=== PATIENT | female | born 1960 | race Caucasian/White ===

== ENCOUNTER 2017-01-04 05:59 | Inpatient (IN) | payer OTHER ==
[2016-12-23 08:19] VITALS: BP 133/87
[~2017-01-04] VITALS: Ht 157.5 cm; Wt 102.0 kg
[~2017-01-04 05:59] MED LIST: BIOT300T2 PO; FLUO40CA2 PO; OMEP-110 PO; Vitamin B12 PO; iron PO
[2017-01-04] MEDS ORDERED: LACTATED RINGERS 1,000 ML IV SCH (07:07)
[2017-01-04] MEDS ORDERED: BUPIVACAINE/PF-EPI 0.25% 1:200K ONE (07:18)
[2017-01-04] MEDS ORDERED: LIDOCAINE 1%, 2ML SQ PRN (07:30)
[2017-01-04] MEDS ORDERED: SCOPOLAMINE PATCH, 1.5MG PATCH.TD72 TD ONE (07:30)
[2017-01-04] MEDS ORDERED: PNEUMOCOCCAL 23 VACCINE IM-VACC ONE (07:30)
[2017-01-04] MEDS ORDERED: MIDAZOLAM 1 MG/ML, 2ML ONE (07:46)
[2017-01-04] MEDS ORDERED: FENTANYL PF 250 MCG/5ML ONE (07:46)
[2017-01-04 08:22] LABS: HCG UR OBC PASS
[2017-01-04] MEDS ORDERED: GLYCOPYRROLATE 0.2MG/1ML ONE (09:01)
[2017-01-04] MEDS ORDERED: SUCCINYLCHOLINE 20 MG/ML, 10ML ONE (09:01)
[2017-01-04] MEDS ORDERED: CEFAZOLIN 1,000 MG ONE (09:01)
[2017-01-04] MEDS ORDERED: ROCURONIUM 10 MG/ML ONE (09:01)
[2017-01-04] MEDS ORDERED: NEOSTIGMINE 1 MG/ML, 10ML ONE (09:01)
[2017-01-04] MEDS ORDERED: PROPOFOL 10 MG/ML, 20ML ONE (09:01)
[2017-01-04] MEDS ORDERED: DEXAMETHASONE 4 MG/ML, 1ML ONE (09:01)
[2017-01-04] MEDS ORDERED: LORazepam 2 MG/ML, 1ML IV PRN (10:30)
[2017-01-04] MEDS ORDERED: ACETAMINOPHEN 325 MG TABLET PO PRN (10:30)
[2017-01-04] MEDS ORDERED: hydrALAzine 20 MG/ML, 1ML IVPush PRN (10:30)
[2017-01-04] MEDS ORDERED: ENALAPRILAT 1.25 MG/ML, 2ML IV PRN (10:30)
[2017-01-04] MEDS ORDERED: PROMETHAZINE 12.5 MG SUPP PR PRN (10:30)
[2017-01-04] MEDS ORDERED: hydrALAzine 20 MG/ML, 1ML IV PRN (10:30)
[2017-01-04] MEDS ORDERED: DIPHENHYDRAMINE 50 MG/ML, 1ML IV PRN (10:30)
[2017-01-04] MEDS ORDERED: ONDANSETRON 2MG/ML, 2ML IVPush PRN ×2 (10:30)
[2017-01-04] MEDS ORDERED: PHENOL THROAT SPRAY BOTTLE MM PRN (10:30)
[2017-01-04] MEDS ORDERED: LABETALOL 5MG/ML, 20ML IV PRN (10:30)
[2017-01-04] MEDS ORDERED: PROMETHAZINE 25 MG/ML, 1ML IM PRN (10:30)
[2017-01-04] MEDS ORDERED: METOCLOPRAMIDE 5 MG/ML, 2ML IV PRN (10:30)
[2017-01-04] MEDS ORDERED: OXYcodone 5 MG/5 ML ORAL.SOL UDC PO PRN (10:30)
[2017-01-04] MEDS ORDERED: morphine SULFATE 10 MG/ML, 1ML IVPush PRN (10:30)
[2017-01-04] MEDS ORDERED: ACETAMINOPHEN 650 MG/20.3 ML UDC ONE (10:58)
[2017-01-04] MEDS ORDERED: FENTANYL PF 100 MCG/2ML ONE (10:58)
[2017-01-04] MEDS ORDERED: OXYcodone 5 MG/5 ML ORAL.SOL UDC ONE (10:59)
[2017-01-04] MEDS: FENTANYL PF 100 MCG/2ML IV PRN ×2 (11:04→11:18)
[2017-01-04] MEDS ORDERED: PROMETHAZINE 25 MG/ML, 1ML ONE (11:36)
[2017-01-04] MEDS ORDERED: HYDROmorphone 2 MG/ML, 1ML ONE (11:36)
[2017-01-04] MEDS: HYDROmorphone 1 MG/ML, 1ML IV PRN ×8 (11:37→21:17)
[2017-01-04] MEDS ORDERED: PROMETHAZINE 25 MG/ML, 1ML IV PRN (12:00)
[2017-01-04] MEDS: PANTOPRAZOLE 40 MG IV IVPush SCH (14:15)
[2017-01-04] MEDS: LACTATED RINGERS 1,000 ML IV SCH ×2 (14:16→21:16)
[2017-01-04 15:17] VITALS: BP 157/98
[2017-01-04 19:50] VITALS: BP 125/75
[2017-01-04 23:30] VITALS: BP 132/74
[2017-01-05] MEDS: HYDROcodone/APAP 7.5-325MG/15ML UDC PO PRN ×4 (00:05→13:32)
[2017-01-05 03:50] VITALS: BP 129/74
[2017-01-05] MEDS: LACTATED RINGERS 1,000 ML IV SCH ×2 (03:51→09:00)
[2017-01-05] MEDS: HYDROmorphone 1 MG/ML, 1ML IV PRN (03:52)
[2017-01-05] MEDS ORDERED: PNEUMOCOCCAL 23 VACCINE IM-VACC ONE (05:00)
[2017-01-05 05:32] LABS: HEMOGLOBIN 13.8 g/dL (11.7-16.4)
[2017-01-05 05:44] LABS: BLOOD UREA NITROGEN 5 mg/dL (7-18)
[2017-01-05 07:00] VITALS: BP 136/79
[2017-01-05] MEDS: PANTOPRAZOLE 40 MG IV IVPush SCH (08:56)
[2017-01-05 12:55] VITALS: BP 140/85
[2017-01-05] MEDS ORDERED: KETOROLAC 30 MG/1 ML IVPush PRN (13:30)
[2017-01-05 15:21] VITALS: BP 117/51
== END 2017-01-05 15:50 | disposition home or self-care (01) | DRG 621 ==
LOC: ORIP 05:59 → 4NOR 12:34 → DCLOUNGE 01-05 15:33
PROVIDERS: ADMIT Thoracic Surgery (Cardiothoracic Vascular Surgery); ATTEND Thoracic Surgery (Cardiothoracic Vascular Surgery)
PROC: 0BQS4ZZ (ICD-10-PCS; 2017-01-04)
PROC: 0BQR4ZZ (ICD-10-PCS; 2017-01-04)
PROC: 0DB64Z3 Excision of Stomach, Percutaneous Endoscopic Approach, Vertical (ICD-10-PCS; principal; 2017-01-04 08:30)
DX: E66.01 Morbid (severe) obesity due to excess calories (principal); K44.9 Diaphragmatic hernia without obstruction or gangrene; K21.9 Gastro-esophageal reflux disease without esophagitis; G89.29 Other chronic pain; F41.9 Anxiety disorder, unspecified; D50.9 Iron deficiency anemia, unspecified; F32.9 Major depressive disorder, single episode, unspecified; Z68.41 Body mass index [BMI] 40.0-44.9, adult; Z88.5 Allergy status to narcotic agent; Z80.0 Family history of malignant neoplasm of digestive organs; Z80.8 Family history of malignant neoplasm of other organs or systems
CPT/HCPCS: 36415; 80048; 81025; 82040; 85025; 88307; 90732; J0690; J1100; J1170; J1885; J2250; J2405; J2550; J2704; J2710; J3010; J3490; C9113; J0330; J1200; J7120